=== PATIENT | male | born 1955 | race Caucasian/White ===

== ENCOUNTER → 2022-11-18 | Outpatient (CLI) | payer MEDICARE, OTHER, SELFPAY ==
--- NOTE | 2022-11-18 | DI.US.S_ITS ---
PROCEDURE: US ABDOMEN LIMITED INDICATIONS: Other cirrhosis of liver TECHNIQUE: Real-time focused scanning was performed of the abdomen, with image documentation. COMPARISON: [facility], US, US ABDOMEN COMPLETE, 04/05/2022, 12:58. FINDINGS: Liver is nodular in appearance measuring 16.0 cm. No distinct mass is identified. Gallbladder demonstrates mobile gallstone measuring 1.8 cm. Possible appearance of adenomyomatosis although not well visualized. Wall thickness is enlarged measuring 3.8 mm. Biliary system is unable to be characterize as not well seen. Spleen is enlarged measuring 16.8 cm. Moderate ascites within the abdomen. IMPRESSION: Cirrhotic appearance of liver with splenomegaly. Persistent appearance of gallstones as identified on prior exam. Wall thickness is enlarged. This could be secondary to hepatic disease unless clinical symptoms correlate with developing cholecystitis. Ascites. Dictated by: Haydee Mauricio M.D. on 11/18/2022 at 16:59 Approved by: Haydee Mauricio M.D. on 11/18/2022 at 17:00
== END ==
LOC: US 13:52
PROVIDERS: Referring Provider Internal Medicine; Visit Provider Internal Medicine
DX: K74.69 Other cirrhosis of liver (principal); R16.1 Splenomegaly, not elsewhere classified; R18.8 Other ascites; K80.20 Calculus of gallbladder without cholecystitis without obstruction
CPT/HCPCS: 76705